=== PATIENT | female | born 1965 | race American Indian/Alaskan Native ===

== ENCOUNTER 2018-11-27 13:30 | Emergency (ER) | payer MEDICAID ==
[2018-11-27 14:06] VITALS: BMI 35.7
[2018-11-27 14:07] VITALS: BP 133/86; PULSE 73; RESP 18; TEMP 98.1; O2SAT 100
[2018-11-27] MEDS ORDERED: Naproxen 550 mg Tab PO STA (14:57)
--- NOTE | 2018-11-27 15:01 | C.PDOC ---
History Of Present Illness 53 year old female presents to ED requesting wound check. Patient complains of pain after having left arm surgery at [facility] for multiple cysts in her left forearm. Patient denies fever, bleeding, and discharge. Time Seen by Provider: 11/27/18 14:19 Chief Complaint (Nursing): Wound Check History Per: Patient History/Exam Limitations: no limitations Onset/Duration Of Symptoms: Days (7) Current Symptoms Are (Timing): Still Present Quality: "Pain" Past Medical History Reviewed: Historical Data, Nursing Documentation, Vital Signs Vital Signs: Last Vital Signs Temp 98.1 F 11/27/18 14:06 Pulse 73 11/27/18 14:06 Resp 18 11/27/18 14:06 BP 133/86 11/27/18 14:06 Pulse Ox 100 11/27/18 14:06 - Medical History PMH: Asthma Other Surgeries: Left arm surgery Family History: States: Unknown Family Hx - Social History Hx Alcohol Use: Yes Hx Substance Use: No - Immunization History Hx Tetanus Toxoid Vaccination: No Hx Influenza Vaccination: No Hx Pneumococcal Vaccination: No Review Of Systems Constitutional: Negative for: Fever, Chills, Weakness Musculoskeletal: Positive for: Arm Pain (left arm). Negative for: Other (bleeding or discharge from the left arm) Skin: Negative for: Rash Neurological: Negative for: Weakness, Numbness Physical Exam - Physical Exam Appears: Well, Non-toxic, No Acute Distress Skin: Normal Color, Warm, Dry Head: Atraumatic, Normacephalic Neck: Normal ROM, Supple Chest: Symmetrical, No Deformity Cardiovascular: Rhythm Regular, No Murmur Respiratory: No Accessory Muscle Use Extremity: Capillary Refill (<2 seconds), Other (Left forearm: Well healing surgical wounds with intact armando to the left proximal thenar eminence, lateral aspect of the distal forearm, and lateral aspect of the left proximal forearm, no redness, no discharge, no bleeding ) Neurological/Psych: Oriented x3, Normal Speech, Normal Cognition, Normal Motor, Normal Sensation ED Course And Treatment O2 Sat by Pulse Oximetry: 100 (in RA) Progress Note: Wounds redressed. Patient given and prescribed Naproxen PO for pain. Re-evaluation. Patient feels better. Discussed plan with patient who expresses understanding. All questions answered and there is agreement with the plan to discharge home with instructions. Patient stable for discharge. Return if symptoms persist or worsen. Disposition Counseled Patient/Family Regarding: Diagnosis, Need For Followup, Rx Given - Disposition Referrals: at [facility] [Outside] Disposition: HOME/ ROUTINE Disposition Time: 15:00 Condition: STABLE Additional Instructions: FOLLOW UP WITH YOUR SURGEON TUESDAY SCHEDULED USE PAIN MEDICATION NEEDED RETURN TO ER IF YOU HAVE ANY CONCERNING SYMPTOMS Prescriptions: Naproxen 375 mg PO BID PRN #20 tablet PRN Reason: pain Instructions: Wound Care (DC) Forms: [employer] (Vietnamese) Print Language: HEBREW - Clinical Impression Clinical Impression: Encounter for wound care, Left forearm pain - Scribe Statement The provider has reviewed the documentation as recorded by the Scribe (Natali Shankar) All medical record entries made by the Scribe were at my direction and personally dictated by me. I have reviewed the chart and agree that the record accurately reflects my personal performance of the history, physical exam, medical decision making, and the department course for this patient. I have also personally directed, reviewed, and agree with the discharge instructions and disposition.
[2018-11-27] MEDS ORDERED: Naproxen 550 mg Tab PO ONE (15:16)
== END 2018-11-27 15:18 | disposition home or self-care (01) ==
LOC: C.ER 13:30
DX: Z48.00 Encounter for change or removal of nonsurgical wound dressing (principal); M79.632 Pain in left forearm